=== PATIENT | male | born 1985 | race Caucasian/White ===

== ENCOUNTER → 2016-12-19 | Outpatient (CLI) | payer OTHER ==
--- NOTE | 2016-12-20 08:12 | MR ---
MRI of the brain with and without contrast HISTORY: Headaches. TECHNIQUE: T1-weighted sagittal, T2, FLAIR, and diffusion axial, postcontrast T1 axial and coronal vi ews of the brain are submitted. CONTRAST: 20 mL MultiHance FINDINGS: There is no evidence of acute ischemia. The ventricles, basal cisterns, and sulci overlying the co nvexities are consistent with the patient's age. There is no mass effect or enhancing mass. Craniocervical junction maintained. Sella turcica has a normal appearance. No evidence of cerebellopo ntine angle mass. Changes of mild chronic sinusitis. WHITE MATTER: Single area of abnormal signal within the left parietal white matter. No enhancement. Finding of doub tful significance. IMPRESSION: 1. No acute intracranial process. Single less than 5 mm focus of abnormal signal in the left frontal white matter is nonspecific and is of questionable significance. EXAMINATION TYPE: MR cervical spine wo/w DATE OF EXAM: 12/19/2016 10:36 PM COMPARISON: NONE HISTORY: Headache, memory loss, neck pain Contrast: 20 mL MultiHance TECHNIQUE: T1 sagittal and coronal, T2 sagittal, and gradient echo axial, postcontrast T1 sagittal an d axial views of the cervical spine are submitted. FINDINGS: The cranial cervical junction is preserved. There is no abnormal signal seen within the sp inal cord or paraspinal soft tissues. At C2-3 there is no disc herniation or canal stenosis. No foraminal encroachment. At C3-4 there is mild uncovertebral joint hypertrophy with mild right-sided foraminal encroachment. N o canal stenosis or disc herniation. At C4-5 there is very mild uncovertebral joint hypertrophy. No significant foraminal encroachment, di sc herniation or canal stenosis. At C5-6 there is central broad-based disc protrusion with mild effacement of thecal sac but no spinal cord contact. Mild uncovertebral joint hypertrophy. Neural foramina remain patent. At C6-7 there is no disc herniation or canal stenosis. At C7-T1 there is no disc herniation or canal stenosis. IMPRESSION: 1. Central disc broad-based protrusion C5-C6 with mild effacement of thecal sac but no spinal cord c ontact or significant foraminal encroachment. 2. Multilevel uncovertebral joint mild hypertrophy.
== END | disposition home or self-care (01) ==
LOC: RADMRIMAIN 19:26
PROVIDERS: ATTEND Psychiatry & Neurology Pain Medicine
DX: R51 Headache (principal); R41.3 Other amnesia; H53.9 Unspecified visual disturbance; R93.8 Abnormal findings on diagnostic imaging of other specified body structures
CPT/HCPCS: 70553; 72156; A9577

== ENCOUNTER → 2017-01-16 | Outpatient (CLI) | payer OTHER | END | disposition home or self-care (01) | LOC: LABWHC1 07:45 | PROVIDERS: ATTEND Psychiatry & Neurology Neurology | DX: R53.83 Other fatigue (principal); R42 Dizziness and giddiness; H53.9 Unspecified visual disturbance | CPT/HCPCS: 36415; 82040; 82042; 82784; 83916 ==

== ENCOUNTER → 2017-10-24 | Outpatient (CLI) | payer OTHER ==
--- NOTE | 2017-10-25 00:08 | MR ---
EXAMINATION TYPE: MR brain wo/w con DATE OF EXAM: 10/24/2017 COMPARISON: 12/19/2016 HISTORY: White matter changes TECHNIQUE: Multiplanar, multisequence images of the brain and brainstem is performed without and with IV contras t, utilizing 11 mL intravenous Gadavist . FINDINGS: Ventricles and sulci appear normal. There is no mass effect nor midline shift. There is no sign of in tracranial hemorrhage. Huitron-white matter structures have fairly normal signal pattern. There is no ev idence of cerebral edema. Sella turcica is normal. Brainstem appears normal. Corpus callosum is angie l. There is no pathologic enhancement. There is minimal mucosal thickening in the ethmoid sinuses. Co ntrast images show no pathologic enhancement. Pituitary stalk is in midline. Optic chiasm appears nor mal. IMPRESSION: Normal MR scan of the brain. No evidence of any white matter disease. There is a small fo cus of increased signal in the left parietal lobe on the old exam that is not demonstrated on today's exam. Minimal ethmoid sinusitis.
== END | disposition home or self-care (01) ==
LOC: RADMRIMAIN 20:25
PROVIDERS: ATTEND Psychiatry & Neurology Neurology
DX: R90.82 White matter disease, unspecified (principal)
CPT/HCPCS: 70553; A9581